=== PATIENT | female | born 1990 | race Caucasian/White ===

== ENCOUNTER 2019-11-08 09:16 | Emergency (ER) | payer BC, OTHER ==
[2019-11-08] MEDS ORDERED: ONDANSETRON 4 MG/2 ML VIAL ONE (10:46)
[2019-11-08] MEDS ORDERED: NA CHLORIDE 0.9% 1,000 ML ONE (10:46)
[2019-11-08] MEDS ORDERED: KETOROLAC 30 MG/ML INJ ONE (10:46)
[2019-11-08 10:52] LABS: Absolute Lymphocytes (CBC) 2.3 K/uL (0.7-4.9); Basophils % 0.6 % (0-1.3); Hematocrit 41.8 % (36.0-45.0); Lymphocytes % 19.8 % (15.3-44.8); MPV 8.5 fL (7.6-11.3); RBC Red Blood Cell Count 5.09 M/uL (3.86-4.86)
[2019-11-08 11:03] LABS: ALT/SGPT 21 U/L (12-78); AST/SGOT 15 U/L (15-37); Albumin 3.4 g/dL (3.4-5.0); Alkaline Phosphatase 74 U/L (45-117); BUN Blood Urea Nitrogen 14 mg/dL (7-18); Bicarbonate 23 mmol/L (21-32); Bilirubin Direct < 0.1 mg/dL (0-0.2); Bilirubin Total 0.2 mg/dL (0.2-1.0); Glucose Level 131 mg/dL (74-106); Lipase 69 U/L (73-393); Potassium 3.6 mmol/L (3.5-5.1); Protein, Total 7.9 g/dL (6.4-8.2); Sodium Level 141 mmol/L (136-145)
--- NOTE | 2019-11-08 11:42 | RAD REPORT ---
EXAM DESCRIPTION: CT - Abdomen Pelvis W Contrast - 11/08/2019 11:19 am CLINICAL HISTORY: Abdominal pain / left lower quadrant pain COMPARISON: none. TECHNIQUE: Computed axial tomography of the abdomen pelvis was obtained. 100 cc Isovue-300 was admin istered intravenously. Oral contrast was not requested which limits evaluation of bowel. All CT scans are performed using dose optimization technique as appropriate and may include automated exposure control or mA/KV adjustment according to patient size. FINDINGS: The liver, spleen, pancreas, adrenal and right kidney appear unremarkable. Delay of concentration of contrast within the left kidney. Minimal left hydronephrosis. 1 millimeter calculus very distal left ureter. There is no evidence of diverticulitis. Normal appendix Apparent mild thickening of the wall of the transverse colon probably secondary to incomplete distent ion IMPRESSION: 1 millimeter calculus very distal left ureter resulting in minimal left hydronephrosis
--- NOTE | 2019-11-08 11:52 | ER ---
Nurse's Notes [facility] Name: Nidhi Cho Age: 29 yrs Sex: Female : 1990 Arrival Date: 11/08/2019 Time: 09:21 Bed 16 Private MD: Diagnosis: Calculus of kidney and ureter Presentation: 11/07 09:53 Chief complaint: Patient states: LLQ abdominal pain radiates to left lower back, jl7 started today, N/V, pt diaphoretic and clammy. Coronavirus screen: The patient has NOT traveled to a country currently being monitored by the [facility] within the last 14 days. Proceed with normal triage procedures. Ebola Screen: No symptoms or risks identified at this time. Initial Sepsis Screen: Does the patient meet any 2 criteria? No. Patient's initial sepsis screen is negative. Does the patient have a suspected source of infection? Yes: Acute abdominal pain. Risk Assessment: Do you want to hurt yourself or someone else? Patient reports no desire to harm self or others. Onset of symptoms was November 08, 2019. Care prior to arrival: None. 09:53 Method Of Arrival: Ambulatory jl7 09:53 Acuity: TRACY 3 jl7 Triage Assessment: 09:57 General: Appears in no apparent distress. uncomfortable, ill, Behavior is cooperative. jl7 Pain: Complains of pain in left lower quadrant Pain radiates to left low back. Neuro: Level of Consciousness is awake, alert, obeys commands. Cardiovascular: skin cold, clammy. Respiratory: Airway is patent Respiratory effort is even, unlabored, Respiratory pattern is regular, symmetrical. GI: Reports nausea, vomiting. Derm: Skin is diaphoretic, Skin is pale, Skin temperature is cool. 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 - Social history:: Smoking status: Patient denies any tobacco usage or history of. Screenin:38 Abuse screen: Denies threats or abuse. Denies injuries from another. Nutritional bp screening: No deficits noted. Tuberculosis screening: No symptoms or risk factors identified. Fall Risk None identified. Assessment: 10:00 General: SEE TRIAGE NOTE. bp 10:52 Reassessment: IVF INFUSING, UOP AND CT PENDING. VS STABLE. bp 11:15 Reassessment: PT TO CT WITH CANOE INSPECTOR. bp 11:24 Reassessment: PT RETURNED FROM CT. bp 12:12 Reassessment: D/C ON HOLD FOR IVF AND MED COMPLETION. bp 12:22 Reassessment: PT D/C HOME AMBULATORY, DX WITH RENAL CALCULUS. bp Vital Signs: 09:53 BP 147 / 102; Pulse 65; Resp 19 S; Temp 97.6(O); Pulse Ox 100% on R/A; Weight 104.33 kg jl7 (R); Height 5 ft. 8 in. (172.72 cm) (R); 10:51 BP 152 / 94; Pulse 52; Resp 16; Pulse Ox 100% ; bp 11:15 BP 116 / 64; Pulse 70; Resp 17; Pulse Ox 99% ; bp 12:12 BP 124 / 82; Pulse 75; Resp 17; Pulse Ox 100% ; bp 09:53 Body Mass Index 34.97 (104.33 kg, 172.72 cm) jl7 ED Course: 09:21 Patient arrived in ED. mr 09:47 Philip Kilgore, RN is Primary Nurse. bp 09:56 Triage completed. jl7 09:57 Arm band placed on right wrist. jl7 10:03 Felicia Xavier [facility]NP[facility]C [facility]. kb 10:03 Jacob Moreno MD is Attending Physician. kb 10:36 Inserted saline lock: 22 gauge in left antecubital area, using aseptic technique. Blood bp collected. 10:38 Patient has correct armband on for positive identification. Placed in gown. Bed in low bp position. Call light in reach. Side rails up X2. 11:22 CT Abd/Pelvis - IV Contrast Only In Process Unspecified. EDMS 12:22 No provider procedures requiring assistance completed. IV discontinued, intact, bp bleeding controlled, No redness/swelling at site. Pressure dressing applied. Administered Medications: 10:45 Drug: NS 0.9% 1000 ml Route: IV; Rate: 1000 ml; Site: left antecubital; bp 12:11 Follow up: IV Status: Completed infusion; IV Intake: 1000ml bp 10:45 Drug: Zofran (Ondansetron) 4 mg Route: IVP; Site: left antecubital; bp 12:10 Follow up: Response: No adverse reaction; Nausea is decreased bp 10:45 Drug: TORadol - Ketorolac 15 mg Route: IVP; Site: left antecubital; bp 12:11 Follow up: Response: Pain is decreased bp 12:00 Drug: Magnesium Sulfate 1 grams Route: IVPB; Infused Over: 30 mins; Site: left forearm; bp 12:21 Follow up: IV Status: Completed infusion; IV Intake: 100ml bp Intake: 12:11 IV: 1000ml; Total: 1000ml. bp 12:21 IV: 100ml; Total: 1100ml. bp Outcome: 11:50 Discharge ordered by MD. kb 12:22 Discharged to home ambulatory. bp 12:22 Condition: stable 12:22 Discharge instructions given to patient, Instructed on discharge instructions, follow up and referral plans. medication usage, Demonstrated understanding of instructions, follow-up care, medications, Prescriptions given X 3. 12:26 Patient left the ED. bp Signatures: Dispatcher [employer] EDMS Felicia Xavier, OLIVERIO OROPEZAP-Harmony Clifford mr Yunior Peacock, RN RN jlPhilip Magaña, ALINA RN bp
--- NOTE | 2019-11-08 11:53 | EDPHYS ---
Physician Documentation [facility] Name: Nidhi Cho Age: 29 yrs Sex: Female : 1990 Arrival Date: 11/08/2019 Time: 09:21 Bed 16 Private MD: ED Physician Jacob Moreno HPI: 11/07 10:39 This 29 yrs old Female presents to ER via Ambulatory with complaints of kb Abdominal Pain, Vomiting. 10:39 The patient presents with abdominal pain in the left lower quadrant. Onset: The kb symptoms/episode began/occurred this morning. The symptoms radiate to the left flank. Associated signs and symptoms: Pertinent positives: nausea and vomiting, Pertinent negatives: constipation, diarrhea, fever. The symptoms are described as constant. Modifying factors: The symptoms are alleviated by nothing, the symptoms are aggravated by nothing. Severity of pain: At its worst the pain was moderate in the emergency department the pain is unchanged. The patient has not experienced similar symptoms in the past. The patient has not recently seen a physician. Pt reports LLQ pain, nausea and vomiting that started today. Denies fever, diarrhea or constipation. Pt has never had this before. . 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 - Social history:: Smoking status: Patient denies any tobacco usage or history of. ROS: 10:36 Constitutional: Negative for fever, chills, and weight loss, ENT: Negative for injury, kb pain, and discharge, Neck: Negative for injury, pain, and swelling, Cardiovascular: Negative for chest pain, palpitations, and edema, Respiratory: Negative for shortness of breath, cough, wheezing, and pleuritic chest pain, Back: Negative for injury and pain, MS/Extremity: Negative for injury and deformity, Skin: Negative for injury, rash, and discoloration, Neuro: Negative for headache, weakness, numbness, tingling, and seizure. 10:36 Abdomen/GI: Positive for abdominal pain, nausea and vomiting, Negative for diarrhea, constipation. Exam: 10:36 Constitutional: This is a well developed, well nourished patient who is awake, alert, kb and in no acute distress. Head/Face: Normocephalic, atraumatic. Chest/axilla: Normal chest wall appearance and motion. Nontender with no deformity. No lesions are appreciated. Cardiovascular: Regular rate and rhythm with a normal S1 and S2. No gallops, murmurs, or rubs. Normal PMI, no JVD. No pulse deficits. Respiratory: Lungs have equal breath sounds bilaterally, clear to auscultation and percussion. No rales, rhonchi or wheezes noted. No increased work of breathing, no retractions or nasal flaring. Back: No spinal tenderness. No costovertebral tenderness. Full range of motion. Skin: Warm, dry with normal turgor. Normal color with no rashes, no lesions, and no evidence of cellulitis. MS/ Extremity: Pulses equal, no cyanosis. Neurovascular intact. Full, normal range of motion. Neuro: Awake and alert, GCS 15, oriented to person, place, time, and situation. Cranial nerves II-XII grossly intact. Motor strength 5/5 in all extremities. Sensory grossly intact. Cerebellar exam normal. Normal gait. 10:36 Abdomen/GI: Inspection: abdomen appears normal, Bowel sounds: normal, in all quadrants, Palpation: soft, in all quadrants, moderate abdominal tenderness, in all quadrants. Vital Signs: 09:53 BP 147 / 102; Pulse 65; Resp 19 S; Temp 97.6(O); Pulse Ox 100% on R/A; Weight 104.33 kg 7 (R); Height 5 ft. 8 in. (172.72 cm) (R); 10:51 BP 152 / 94; Pulse 52; Resp 16; Pulse Ox 100% ; bp 11:15 BP 116 / 64; Pulse 70; Resp 17; Pulse Ox 99% ; bp 12:12 BP 124 / 82; Pulse 75; Resp 17; Pulse Ox 100% ; bp 09:53 Body Mass Index 34.97 (104.33 kg, 172.72 cm) 7 MDM: 10:04 Patient medically screened. kb 10:39 Data reviewed: vital signs, nurses notes. Data interpreted: Pulse oximetry: on room air kb is 100 %. Interpretation: normal. 11:49 Counseling: I had a detailed discussion with the patient and/or guardian regarding: the kb historical points, exam findings, and any diagnostic results supporting the discharge/admit diagnosis, lab results, radiology results, the need for outpatient follow up, a family practitioner, to return to the emergency department if symptoms worsen or persist or if there are any questions or concerns that arise at home. 11/07 10:04 Order name: Basic Metabolic Panel; Complete Time: 11:20 kb 11/07 10:04 Order name: CBC with Diff; Complete Time: 10:59 kb 11/07 10:04 Order name: Hepatic Function; Complete Time: 11:20 kb 11/07 10:04 Order name: Lipase; Complete Time: 11:20 kb 11/07 11:46 Order name: Urine Dipstick--Ancillary (enter results) bd 11/07 11:46 Order name: Urine --Ancillary (enter results) bd 11/07 10:04 Order name: IV Saline Lock; Complete Time: 10:36 kb 11/07 10:04 Order name: Labs collected and sent; Complete Time: 10:36 kb 11/07 10:31 Order name: Urine Dipstick-Ancillary (obtain specimen); Complete Time: 11:51 kb 11/07 10:31 Order name: CT Abd/Pelvis - IV Contrast Only; Complete Time: 11:47 kb Administered Medications: 10:45 Drug: NS 0.9% 1000 ml Route: IV; Rate: 1000 ml; Site: left antecubital; bp 12:11 Follow up: IV Status: Completed infusion; IV Intake: 1000ml bp 10:45 Drug: Zofran (Ondansetron) 4 mg Route: IVP; Site: left antecubital; bp 12:10 Follow up: Response: No adverse reaction; Nausea is decreased bp 10:45 Drug: TORadol - Ketorolac 15 mg Route: IVP; Site: left antecubital; bp 12:11 Follow up: Response: Pain is decreased bp 12:00 Drug: Magnesium Sulfate 1 grams Route: IVPB; Infused Over: 30 mins; Site: left forearm; bp 12:21 Follow up: IV Status: Completed infusion; IV Intake: 100ml bp Disposition: 16:24 Co-signature as Attending Physician, Jacob Moreno MD I agree with the assessment and kdr plan of care. Disposition: 11/08/19 11:50 Discharged to Home. Impression: Calculus of kidney and ureter. - Condition is Stable. - Discharge Instructions: Kidney Stones, [id number], Dietary Guidelines to Help Prevent Kidney Stones. - Prescriptions for Zofran 4 mg Oral Tablet - take 1 tablet by ORAL route every 6 hours As needed; 20 tablet. Flomax 0.4 mg Oral Capsule, Sust. Release 24 hr - take 1 capsule by ORAL route once daily 1/2 hour following the same meal each day; 10 capsule. Diclofenac Sodium 75 mg Oral Tablet, Delayed Release (E.C.) - take 1 tablet by ORAL route 2 times per day As needed; 30 tablet. - Medication Reconciliation Form, Thank You Letter, Antibiotic Education, Prescription Opioid Use form. - Follow up: Emergency Department; When: As needed; Reason: Worsening of condition. Follow up: Private Physician; When: 2 - 3 days; Reason: Recheck today's complaints, Continuance of care, Re-evaluation by your physician. Signatures: Dispatcher [employer] EDMS Felicia Xavier, PUBLIC RELATIONS WRITER-C PUBLIC RELATIONS WRITER-Ckb Jacob Moreno MD MD kdr Yunior Peacock RN RN jl7 Philip Kilgore, RN RN bp Corrections: (The following items were deleted from the chart) 12:26 11:50 11/08/2019 11:50 Discharged to Home. Impression: Calculus of kidney and ureter. bp Condition is Stable. Forms are Medication Reconciliation Form, Thank You Letter, Antibiotic Education, Prescription Opioid Use. Follow up: Emergency Department; When: As needed; Reason: Worsening of condition. Follow up: Private Physician; When: 2 - 3 days; Reason: Recheck today's complaints, Continuance of care, Re-evaluation by your physician. kb
[2019-11-08] MEDS ORDERED: MAGNESIUM SULFATE 1 gm IVPB 1 GM/100 ML BAG IV ONE (11:59)
[2019-11-08 12:35] VITALS: TEMP 97.6
[2019-11-08 12:40] VITALS: BP 124/82; O2SAT 100
[2019-11-08 14:16] LABS: Urine Blood 3+ (NEG); Urine Glucose NEGATIVE (NEG); Urine Protein 1+ (NEG)
== END 2019-11-08 12:26 | disposition home or self-care (01) ==
LOC: ER 09:16
DX: N20.2 Calculus of kidney with calculus of ureter (principal); Z88.3 Allergy status to other anti-infective agents
CPT/HCPCS: 96365; 96361; 85025; 80048; 36415; 81025; 80076; 81003; 83690; 74177; 96375; 99284; Q9967; J3475; J7030; J2405